=== PATIENT | female | born 1975 | race Caucasian/White ===

== ENCOUNTER → 2017-09-14 | Outpatient (CLI) | payer BC ==
[2006-01-16 07:00] VITALS: PULSE 80; TEMP 98
== END ==
LOC: MC.RAD 07-31 10:00
DX: Z12.31 Encounter for screening mammogram for malignant neoplasm of breast (principal)

== ENCOUNTER → 2018-09-18 | Outpatient (CLI) | payer BC ==
[2006-01-16 07:00] VITALS: PULSE 80; TEMP 98
== END ==
LOC: MC.RAD 09:13
DX: Z12.31 Encounter for screening mammogram for malignant neoplasm of breast (principal)

== ENCOUNTER → 2019-12-29 | Outpatient (CLI) | payer BC ==
[2006-01-16 07:00] VITALS: PULSE 80; TEMP 98
== END ==
LOC: MC.RAD 10-09 10:15
DX: Z12.31 Encounter for screening mammogram for malignant neoplasm of breast (principal)

== ENCOUNTER → 2022-05-10 | Outpatient (CLI) | payer BC ==
[2006-01-16 07:00] VITALS: PULSE 80; TEMP 98
== END ==
LOC: MC.RAD 10:41
DX: Z12.31 Encounter for screening mammogram for malignant neoplasm of breast (principal)